=== PATIENT | male | born 1985 | race Two or more races ===

== ENCOUNTER 2023-10-13 17:41 | Emergency (ER) | payer MEDICAID, OTHER ==
[~2023-10-13] VITALS: Ht 170.2 cm; Wt 91.4 kg
[2023-10-13 18:00] VITALS: PULSE 72; O2SAT 95
[2023-10-13] MEDS: cefTRIAXone SOD 1,000 MG VL IM ONE (18:30)
[2023-10-13] MEDS: MORPHINE SULFATE 4 MG/ML SYR/VIAL IV ONE (18:56)
[2023-10-13] MEDS: ONDANSETRON HCL 4 MG/2 ML VIAL IV ONE (18:57)
[2023-10-13] MEDS: TETANUS-DIPTH-ACEL PERTUSSIS 0.5ML SYR Tdap IM ONE (19:56)
[2023-10-13 20:59] VITALS: PULSE 85; O2SAT 94
[2023-10-13] MEDS: HYDROmorphone HCL 2 MG/ML VL/or syr ONE (21:00)
[2023-10-13] MEDS: HYDROmorphone HCL 2 MG/ML VL/or syr IV ONE (21:00)
[2023-10-13 21:14] VITALS: TEMP 98.4; O2SAT 96
[2023-10-13 21:24] VITALS: BP 158/92; PULSE 88; RESP 16
== END 2023-10-13 21:30 | disposition short-term general hospital (02) ==
LOC: ER 17:48
DX: S62.314A Displaced fracture of base of fourth metacarpal bone, right hand, initial encounter for closed fracture (principal); S61.411A Laceration without foreign body of right hand, initial encounter; W01.0XXA Fall on same level from slipping, tripping and stumbling without subsequent striking against object, initial encounter; Y93.89 Activity, other specified; Y92.89 Other specified places as the place of occurrence of the external cause; Y99.8 Other external cause status
CPT/HCPCS: 12001; 73090; 73110; 73130; 90471; 90715; 96372; 96374; 96375; 99291; J0696; J1170; J2270; J2405